=== PATIENT | male | born 1995 | race Caucasian/White ===

== ENCOUNTER 2020-10-01 07:21 | Emergency (ER) | payer SELFPAY ==
[~2020-10-01] VITALS: Ht 177.8 cm; Wt 54.5 kg
[2020-10-01] MEDS ORDERED: EPINEPHRINE 1 MG/ML, 1ML ONE (07:35)
[2020-10-01] MEDS ORDERED: FAMOTIDINE 20 MG/2 ML ONE (07:43)
[2020-10-01] MEDS ORDERED: DIPHENHYDRAMINE 50 MG/ML, 1ML ONE (07:43)
[2020-10-01] MEDS ORDERED: EPINEPHRINE 1 MG/ML, 1ML IM ONE (08:00)
[2020-10-01] MEDS ORDERED: FAMOTIDINE 20 MG/2 ML IVPush ONE (08:00)
[2020-10-01] MEDS ORDERED: DIPHENHYDRAMINE 50 MG/ML, 1ML IVPush ONE (08:00)
--- NOTE | 2020-10-01 08:36 | NUR ---
Pt states he's drowsy but that his face feels better. Lips swollen. VSS.
--- NOTE | 2020-10-01 09:25 | NUR ---
Pt states "my mouth feels better, thank you." Pt's lips decreased in swelling.
[2020-10-01] MEDS ORDERED: DIPHENHYDRAMINE 25 MG CAPSULE ONE (09:51)
[2020-10-01] MEDS ORDERED: DIPHENHYDRAMINE 25 MG CAPSULE PO ONE (10:00)
--- NOTE | 2020-10-01 10:20 | NUR ---
MD Goodwin back to bedside for reevaluation and to update pt on POC.
[2020-10-01 10:30] VITALS: BP 99/65
== END 2020-10-01 10:41 | disposition home or self-care (01) ==
LOC: ED 08:48
DX: T78.3XXA Angioneurotic edema, initial encounter (principal); T78.40XA Allergy, unspecified, initial encounter; R21 Rash and other nonspecific skin eruption; X58.XXXA Exposure to other specified factors, initial encounter; Y93.89 Activity, other specified; Y92.89 Other specified places as the place of occurrence of the external cause; Y99.8 Other external cause status
CPT/HCPCS: 96372; 96374; 96375; 99285; J0171; J1200; J7512; Q0163